=== PATIENT | male | born 1955 | race Caucasian/White ===

== ENCOUNTER 2016-10-03 15:08 | Inpatient (IN) | payer OTHER ==
[~2016-10-03] VITALS: Ht 182.9 cm; Wt 90.8 kg
[2016-10-03] MEDS ORDERED: AMIT75TA PO (18:19)
[2016-10-03] MEDS ORDERED: MORP-38 PO (18:19)
[2016-10-03] MEDS ORDERED: PROZ20CA11 PO (18:19)
[2016-10-03] MEDS ORDERED: ARTI99.0 OU (18:19)
[2016-10-03] MEDS ORDERED: CLON0.5T PO (18:19)
[2016-10-03] MEDS ORDERED: FISH1000 PO (18:19)
[2016-10-03] MEDS ORDERED: LACT10SO29 PO (18:19)
[2016-10-03] MEDS ORDERED: FEXO180T58 PO (18:19)
[2016-10-03] MEDS ORDERED: ASPI81TA13 PO (18:19)
[2016-10-03] MEDS ORDERED: POTA20TA PO (18:19)
[2016-10-03] MEDS ORDERED: METH75TA PO (18:19)
[2016-10-03] MEDS ORDERED: MECL25CH PO (18:19)
[2016-10-03] MEDS ORDERED: BISA10SU4 PR (18:19)
[2016-10-03] MEDS ORDERED: SIME80TA PO (18:19)
[2016-10-03] MEDS ORDERED: VITA100066 PO (18:19)
[2016-10-03] MEDS ORDERED: PROM25TA PO (18:19)
[2016-10-03] MEDS ORDERED: OMEP20CA3 PO (18:19)
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
--- NOTE | 2016-10-03 20:46 | EDDOCDS ---
Physician Documentation [facility] Name: Corby Pendleton Age: 61 yrs Sex: Male : 1955 Arrival Date: 10/03/2016 Time: 15:[address] MD: Disposition: 10/03/16 19:29 Hospitalization ordered by Leighann Uriarte for Inpatient Admission. Preliminary diagnosis is Homicidal and suicidal ideations. - Bed requested for Admit. - Status is Inpatient Admission. slm - Condition is Stable. - Problem is new. - Symptoms are unchanged. Historical: - Allergies: ARIPIPRAZOLE; BuSpar; Cefuroxime; Effexor; Compazine; Erythromycin; Haldol; Imitrex; MAGNESIUM SULFATE; MODAFINIL; Neurontin; Pamelor; Prazosin; Risperdal; SUMATRIPTAN; Tramadol HCl; Trazodone; - Home Meds: 1. Enulose 10 gram/15 mL oral soln 3 times per day 2. methocarbamol 750 mg Oral tab twice a day 3. omeprazole 20 mg Oral cpDR 2 caps nightly 4. Polly 180 mg Oral tab 1 tab once daily 5. Vitamin D Oral 2000 units daily 6. bisacodyl 10 mg Rectal Suppository Oral tab once daily 7. K-Dur 20 mEq Oral TbTQ 1 tab once daily 8. Prozac 20 mg Oral cap 1 cap once daily 9. promethazine 25 mg Oral tab 1 tab once daily as needed (Last dose: 10/03/2016 00:35) 10. amitriptyline 75 mg Oral tab nightly (Last dose: 10/03/2016 01:19) 11. meclizine 25 mg Oral chew 1 tab 3 times per day (Last dose: 10/03/2016 13:41) 12. aspirin 81 mg Oral tab once daily (Last dose: 10/03/2016 09:40) 13. MS Contin 15 mg Oral TbER 1 tab every 12 hours (Last dose: 10/03/2016 13:49) 14. simethicone 80 mg Oral tab 0.5 tab every 6 hours as needed 15. Fish Oil 1,000 mg Oral cap 2 caps daily 16. clonazepam 0.5 mg Oral tab at bedtime 17. Artificial Tears 1.4% Opht four times a day as needed - PMHx: Anxiety; back pain; COPD; Depression; GERD; Migraines; psych hx; - PSHx: spleen; bladder; - Social history: Smoking status: Patient uses tobacco products, current every day smoker. Patient/guardian denies using alcohol, street drugs, No barriers to communication noted, The patient speaks fluent [place], Speaks appropriately for age. - Family history: Not pertinent. - : The pt / caregiver states he / she is not on anticoagulants. Home medication list is obtained from medical history from iván. - Exposure Risk Screening:: None identified. Vital Signs: 10/03 15:41 BP 145 / 87; Pulse 102; Resp 16; Temp 95.5(T); Pulse Ox 97% on R/A; ead 20:39 BP 140 / 91; Pulse 101; Resp 18; Temp 96.4; Pulse Ox 96% on R/A; slm MDM: 15:29 morphine Extended Release Tablet 15 mg PO once ordered. ml 15:29 Aspirin Chewable Tablet 81 mg PO once ordered. ml 15:57 Financial registration complete. [email or web address] 16:22 [facility] Payment Agreement was scanned into [employer] and attached to record. [email or web address] 16:55 Fingerstick Blood Sugar Reviewed. ml 17:56 REGULAR DIET PLASTIC KANG+DIET ordered. EDMS 18:53 Admit to [facility]: ordered. EDMS 18:56 E Legal paperwork was scanned into [employer] and attached to record. ml4 Point of Care Testing: Blood Glucose: 15:40 Blood Glucose: 119 mg/dL; ead Ranges: Administered Medications: 16:03 Not Given (given prior to arrival to [facility]): morphine Extended Release Tablet 15 mg PO ead once 16:03 Not Given (given prior to arrival to [facility]): Aspirin Chewable Tablet 81 mg PO once ead Signatures: Dispatcher [employer] EDMS Krystle Nevarez MD MD ml Treadwell, Michelle, PSA PSA ml4 Radha Moran LPN LPN Corry Munoz,RN RN ead Cinthia Dallas, Reg Reg [email or web address] The chart was reviewed and I authenticate all verbal orders and agree with the evaluation and treatment provided.Corrections: (The following items were deleted from the chart) 15:52 15:47 Home Meds: amitriptyline 75 mg Oral tab nightly; danitza ead 15:52 15:47 Home Meds: MS Contin 15 mg Oral TbER 1 tab every 12 hours; gaild ead 15:52 15:47 Home Meds: promethazine 25 mg Oral tab 1 tab once daily as needed; gaild gaild 16:02 15:47 Home Meds: meclizine 25 mg Oral chew 1 tab 3 times per day; danitza bosch 16:02 15:47 Home Meds: aspirin 81 mg Oral tab once daily; danitza reynoldsd 16:02 15:51 Home Meds: MS Contin 15 mg Oral TbER 1 tab every 12 hours (Last Dose: 10/03/2016 ead 01:19); danitza 17:55 17:14 REGULAR DIET ROOM SERVICE ED+DIET ordered. EDMS EDMS 18:29 15:47 Home Meds: simethicone 80 mg Oral tab every 6 hours as needed; gaild ead 18:29 15:47 Home Meds: Fish Oil 1,000 mg Oral cap daily; danitza reynoldsd Attachments: 16:22 [facility] Payment Agreement [email or web address] [facility]
[2016-10-03 20:56] VITALS: BP 129/82
[2016-10-03] MEDS ORDERED: MOM 30ML SUSPENSION UDC PO PRN (22:30)
[2016-10-03] MEDS ORDERED: OLANZapine ORAL DISINTEGRATING TAB 5MG PO PRN (22:45)
[2016-10-03] MEDS: AMITRIPTYLINE 25 MG TAB PO SCH (23:31)
[2016-10-03] MEDS: OMEPRAZOLE 20 MG CAP PO SCH (23:31)
[2016-10-04] MEDS: BISACODYL 10 MG SUPP PR SCH (08:37)
[2016-10-04] MEDS: FLUoxetine 20 MG CAP PO SCH (08:42)
[2016-10-04] MEDS: NICOTINE 21MG/24HR 1 EA TRANSDERMAL TD SCH (08:42)
[2016-10-04] MEDS: ASPIRIN 81 MG ENTERIC TAB PO SCH (08:42)
[2016-10-04] MEDS: OMEGA-3 1050MG CAPSULE PO SCH (08:42)
[2016-10-04] MEDS: MORPHINE 15 MG SA TAB PO SCH ×2 (08:43→23:54)
[2016-10-04] MEDS: VITAMIN D 1,000 INTERNATIONAL UNITS TABLET PO SCH (08:43)
[2016-10-04] MEDS: POTASSIUM CHLORIDE 10 MEQ SR TABLET PO SCH (08:43)
[2016-10-04] MEDS: FEXOFENADINE 60 MG TAB PO SCH (08:44)
[2016-10-04] MEDS ORDERED: LACTULOSE 20 GM/30 ML SYRUP UD PO SCH (09:00)
[2016-10-04] MEDS ORDERED: PROMETHAZINE 25 MG TAB PO SCH (09:00)
[2016-10-04] MEDS ORDERED: MECLIZINE 25 MG TABLET PO SCH (09:00)
[2016-10-04] MEDS ORDERED: LACTULOSE 20 GM/30 ML SYRUP UD PO PRN (09:00)
[2016-10-04] MEDS ORDERED: METHOCARBAMOL 750 MG TAB PO SCH (09:00)
[2016-10-04] MEDS: MECLIZINE 25 MG TABLET PO PRN ×3 (12:45→21:43)
[2016-10-04] MEDS ORDERED: clonazePAM 0.5 MG TAB PO ONE (13:00)
[2016-10-04] MEDS ORDERED: LORazepam 1 MG TAB PO STA (16:14)
[2016-10-04] MEDS: METHOCARBAMOL 750 MG TAB PO PRN (16:24)
[2016-10-04] MEDS: ACETAMINOPHEN TAB 650MG DOSE (2X325MG) PO PRN (16:24)
[2016-10-04] MEDS: PROMETHAZINE 25 MG TAB PO PRN (17:38)
[2016-10-04] MEDS: chlorproMAZINE 25 MG TAB (Q0161) PO PRN (17:53)
[2016-10-04 18:00] VITALS: BP 135/93
[2016-10-04 21:10] VITALS: BP 122/84
[2016-10-04] MEDS: FIORICET TAB PO PRN (21:43)
[2016-10-04] MEDS ORDERED: PROMETHAZINE INJ 25 MG/ML VIAL (J2550) IM ONE (23:15)
[2016-10-04] MEDS ORDERED: LORazepam 2 MG/ML VIAL (J2060) IM ONE (23:30)
[2016-10-04] MEDS: OMEPRAZOLE 20 MG CAP PO SCH (23:54)
[2016-10-04] MEDS: clonazePAM 0.5 MG TAB PO SCH (23:54)
[2016-10-04] MEDS: AMITRIPTYLINE 25 MG TAB PO SCH (23:54)
--- NOTE | 2016-10-05 00:26 | IPNPDOC ---
Text Note Date of Service The patient was seen on 10/05/16. NOTE Rapid assessment team initiated at approximately 9:10 PM on 10/04/2016. The patient apparently was going to the bathroom, and slipped off the side of the toilet and hit his right head against the side rail, and subsequently landed on his left wrist and left ankle according to the patient. The patient states that he had a momentary bout of lightheadedness, dizziness following the trauma, but states that this only lasted 5 seconds. According to the staff the patient did not have any tongue biting, jerking activity, or any urinary/bowel incontinence. Upon my arrival at the bedside, the patient was noted to be seated on the floor and very agitated. At first, he declined to be cooperative with my evaluation. However, after some persuasion the patient did let me eventually examine him. V/S: B/P 142/84, RR: 18, Pulse: 72, Pulse Ox: 97% on RA Physical Exam: General: Awake, Alert, and Belligerent/Non-Cooperative at times Cardiac: Normal Respiratory: CTA Bilaterally Extremities/Neurological: There appears to be no focal neurological findings on exam, left wrist with good range of motion on flexion and extension with adequate strength and no obvious deformity noted. The patient was also able to bear weight on his left foot, and did not have any significant pain on plantar flexion/extension, with sensation also intact. CT Scan of the Head, X-Rays of the Left Wrist, and Ankle ordered to r/o out any Intracranial Bleeding following trauma to the head, or any acute fractures in the left wrist and ankle respectively. Patient's bedside Nurse Lynnette updated, and advised to call with any acute findings or other concerns. VS,Harjeetbone, I+O VS, Fishbone, I+O Vital Signs Date Time Temp Pulse Resp B/P Pulse Ox O2 Delivery O2 Flow Rate FiO2 10/04/16 23:54 68 18 10/04/16 18:00 98.3 135/93 AMY MORENO MD Oct 05, 2016 00:26
[2016-10-05 00:29] VITALS: BP 114/83
--- NOTE | 2016-10-05 01:50 | REPUSA ---
CLINICAL HISTORY: Head trauma. TECHNIQUE: Multiple axial brain CT scan sections were obtained from base to vertex without contrast a dministration. COMMENTS: There is no evidence of skull fracture. The study shows normal configuration of sella turcica. There are no intra or extra-axial collections. There is no mass effect or midline shift. There is no evidence of hematoma formation. No hydrocephal us is present. No abnormal calcifications are noted. No significant abnormalities are seen either in the posterior fossa or supratentorial compartment. Moderate chronic mucosal inflammatory changes of the ethmoid air cells. The sinuses and mastoid air cells are patent. IMPRESSION: No evidence of acute intracranial pathology. No intracranial hemorrhage or skull fracture. Thank you for your kind referral of this patient.
--- NOTE | 2016-10-05 06:01 | HPE ---
DATE OF ADMISSION: 10/03/2016 CHIEF COMPLAINT: Feels irritated. SUBJECTIVE: He is 61-year-old. He has a history of schizoaffective. He is a . He also says he has a history of post traumatic stress disorder. He was transferred from [facility], as apparent they had no beds. He had been there recently, for a couple of days, admitted September 30, discharged October 02, and he was admitted as he was suicidal, later indicates that he was not, he was noted to be loud and aggressive, and according to their admission summary, he was diagnosed with schizoaffective disorder, and then discharged with [facility]up at [facility] [place], but I understand he also goes to the [facility] in [place], where he sees a Dr. Grant. He says he sees him once a month. It should be noted the patient is not a reliable historian, given his condition. He was discharged on: - amitriptyline 75 mg at night which he says he takes for pain and sleep - aspirin 81 mg, vitamin D 2000 units daily - fexofenadine 180 mg daily - Prozac 20 mg daily - Methergine 25 mg three times daily as needed - methocarbamol 750 mg as needed - he uses morphine regular at 15 mg twice daily - omeprazole 40 mg daily - clonazepam at 0.5 mg at night, though it is noted that he was not discharged on it He was taken back to [facility], as [facility] indicating that he wanted to kill people at [facility], he felt that they had not given him the right medications. He, at one point, also said he wanted to kill one of the doctors there, then said he wanted to kill one of the doctors in the area there, says the police were aware of this. The police were informed by the [facility], and he was picked up and taken to the hospital at [place], they did not admit him as they did not have any beds and he was sent here. He has wanted to go to the [facility] for admission, and I understand, from the staff in the emergency room, the [facility] was contacted yesterday, and that they said that they would not look at his papers until tomorrow, tomorrow being Wednesday, when they would consider him for transfer. He was therefore admitted here. He has been irritable, verbally aggressive, has rapid speech, is tangential in thought. ALLERGIES: He does say he is allergic to several medications and most anti-psychotics mentioned, he suggested allergies to. This includes HALDOL, RISPERIDONE. Again, it is not clear whether they are true allergies, he suggests that RISPERIDONE makes him "more psychotic." He says that Dr. Grant at the [facility] in [place] has known him well, and he suggests that we contact him, and that he will only give us permission for him specifically, for us to get a list of his medications. PAST PSYCHIATRIC HISTORY: As indicated above, has been in psychiatric care for a while, has been admitted to [facility] just recently. PAST MEDICAL HISTORY: 1. Significant for back pain. 2. Chronic pulmonary obstructive disease (COPD). 3. Gastrointestinal reflux disease (GERD). 4. Migraines. MEDICATIONS: Please see the list. These include the promethazine, amitriptyline, meclizine, Prozac, clonazepam. He uses the clonazepam at 0.5 mg at night. He says at one time he was on 8 mg a day, and that was whittled down to 2 mg in the past, now 0.5 mg. Again, I am not quite sure of the patient's reliability. SOCIAL HISTORY: Apparently stays on his own. He is , indicated he has been to various parts of the world, suggested that I do not ask him about details, and I did not. MENTAL STATUS EXAM: He is tall, mildly unkempt, wears dark glasses, uses a walker, cooperative to some extent, but easily irritated, he has overly productive speech, is tangential in thought, speech is not clear, pressured as such. He has a congruent affect, denies active thoughts of hurting himself, currently denies thought of hurting anyone else. He does not appear to be internally preoccupied, but most likely is deluded, he is alert, he is oriented to time, place and person, though thought it was the 05 of October rather than October 04. Sensorium is clear, his judgment is clouded, as is insight. VITAL SIGNS: Blood pressure 129/82, pulse 102, temperature 97.6. ASSESSMENT: 1. Schizoaffective disorder by history. 2. Post traumatic stress disorder by history. 3. Possibly limited social support. 4. Various medical difficulties. He is currently manic, with psychosis, schizoaffective disorder may possibly be the bipolar type. The other differential is bipolar disorder. He says he has post traumatic stress disorder, we did not go into details, and I am not quite sure of the patient's reliability. PLAN: He is admitted to the inpatient psychiatry unit, placed on relevant precautions, and he will be involved in individual, group and milieu therapy. We will attempt at obtaining collateral information, past records, records have been obtained from [facility], and we will attempt at obtaining them from the [facility] in [place] as well as the patient needs mood stabilizers. I am not quite sure of "true allergies" for the various medications that he suggested as been allergic to, including atypical anti-psychotics. He says he has used Depakote in the past, but that "it did not work." For now we will continue with the current medication regimen, but will add clonazepam at 0.5 mg times one for the daytime, to help diminish his agitation and anxiety. Given the limited information we have, will look at avoiding the atypical anti-psychotics to help with mood stabilization. He will receive a medical consultation if indicated. He wishes for a transfer to the [facility], we will pursue that, through discharge planning and the [facility], tomorrow Wednesday, when he will also be seeing the psychiatrist assigned to him. The assessment took 35 minutes. The patient decided to cut it short, indicating he was done. I anticipate that the patient will require a 5-7 day stay, whether it is here or at the SD.
[2016-10-05] MEDS: MAALOX 30 ML SUSP *UDC PO PRN (06:22)
--- NOTE | 2016-10-05 08:06 | REP ---
Clinical: Trauma. Fall. Technique: AP, lateral, bilateral oblique views of the left ankle. Findings: Moderate soft tissue swelling appreciated. No acute fracture or dislocation. Joint spaces and ankle mortise appear intact and normal for age. Impression: Soft-tissue swelling. No acute fracture or dislocation. Signed by Corby Lim MD 10/05/2016 07:57 A
--- NOTE | 2016-10-05 08:09 | REP ---
Clinical: Trauma. Fall. Technique: AP, lateral, bilateral oblique views. Findings: The carpal bones, surrounding osseous structures, soft tissues, and joint spaces are normal. There is no evidence for acute fracture or dislocation. No subcutaneous emphysema or radiodense foreign body. Impression: No acute fracture or dislocation appreciated. Signed by Corby Lim MD 10/05/2016 08:00 A
[2016-10-05] MEDS: FEXOFENADINE 60 MG TAB PO SCH (08:33)
[2016-10-05] MEDS: POTASSIUM CHLORIDE 10 MEQ SR TABLET PO SCH (08:33)
[2016-10-05] MEDS: VITAMIN D 1,000 INTERNATIONAL UNITS TABLET PO SCH (08:33)
[2016-10-05] MEDS: ASPIRIN 81 MG ENTERIC TAB PO SCH ×2 (08:33→09:00)
[2016-10-05] MEDS: FLUoxetine 20 MG CAP PO SCH (08:33)
[2016-10-05] MEDS: OMEGA-3 1050MG CAPSULE PO SCH (08:33)
[2016-10-05] MEDS: NICOTINE 21MG/24HR 1 EA TRANSDERMAL TD SCH (08:34)
[2016-10-05] MEDS: MORPHINE 15 MG SA TAB PO SCH (08:34)
[2016-10-05] MEDS: PROMETHAZINE 25 MG TAB PO PRN (08:36)
[2016-10-05] MEDS: BISACODYL 10 MG SUPP PR SCH (08:37)
[2016-10-05] MEDS: METHOCARBAMOL 750 MG TAB PO PRN ×2 (08:49→19:27)
--- NOTE | 2016-10-05 08:50 | HPE ---
DATE OF ADMISSION: 10/03/2016 PRIMARY CARE PROVIDER: [facility]. HISTORY OF PRESENT ILLNESS: Please refer to psychiatric history and evaluation for further details on this admission. This examination and history is intended for medical issues, which may need treatment, followup or consultation on this 61-year-old male, who was transferred from [facility] after having homicidal ideations. He was discharged on 10/02/2016 from [facility]. SOCIAL HISTORY: He lives alone. He does not drink alcohol. Smokes less than one pack of cigarettes per day. Recreational drug use is none. PAST MEDICAL HISTORY: Chronic back pain, chronic obstructive pulmonary disease (COPD), migraines, gastroesophageal reflux disease (GERD). PAST SURGICAL HISTORY: Bladder surgery and some type of spleen surgery, he states. ALLERGIES: ERYTHROMYCIN, HALOPERIDOL, KETOROLAC, OLANZAPINE, PROCHLORPERAZINE, SUMATRIPTAN. HOME MEDICATIONS: [facility], as listed currently: - amitriptyline 75 mg by mouth at night - artificial tears one drop both eyes four times a day as needed for dry eyes - aspirin 81 mg by mouth daily - bisacodyl 10 mg suppository as needed twice a day for constipation - vitamin D 2000 units by mouth daily - clonazepam 0.5 mg by mouth at night - fexofenadine 180 mg by mouth daily - fish oil 2000 mg by mouth daily - Prozac 20 mg by mouth daily - Lactulose 15 mg by mouth every third day as needed for constipation - meclizine 25 mg by mouth three times a day as needed for vertigo - methocarbamol 750 mg by mouth every 12 hours as needed for back pain - morphine sulfate ER 15 mg by mouth twice a day for back pain - omeprazole 40 mg by mouth at night - potassium chloride 20 mEq by mouth daily - promethazine 25 mg by mouth daily as needed for nausea - simethicone 40 mg by mouth four times a day as needed EKG on file shows sinus rhythm of 89. REVIEW OF SYSTEMS: No complaint of headache currently and does have dark sunglasses on. No blurry or double vision. No fever. No chills. No tinnitus. No hoarseness. No difficulty swallowing. No lightheadedness. No vertigo. CARDIOVASCULAR: No complaints of chest pain, shortness of breath, palpitations, or edema. RESPIRATORY: No chronic cough. No sputum production. No hemoptysis. No orthopnea. No wheeze. He does have a history of COPD. GASTROINTESTINAL: History of gastroesophageal reflux disease (GERD). No complaints of nausea, vomiting, diarrhea. No hematochezia. No melena. No complaints of abdominal pain. GENITOURINARY: No hematuria, dysuria, frequency. MUSCULOSKELETAL: No joint redness or swelling. ENDOCRINE: No polyuria, polydipsia, polyphagia. HEMATOLOGIC: No history of anemia. NEUROLOGIC: No history of seizures. No paresthesias or paralysis. PSYCHOLOGICAL: See psychiatric history and physical. PHYSICAL EXAMINATION: GENERAL: 61-year-old cooperative male who looks much older than his stated years. Height 72 inches, weight 90.8 kg, Body Mass Index (BMI) 27.1. VITAL SIGNS: Blood pressure 129/72, pulse 100, respirations 20, temperature 97.6. The patient is alert and oriented to person and place. HEENT: Pupils are equal and reactive to light. Extraocular muscles intact. Sclerae clear. Conjunctivae normal. No facial asymmetry. Pharynx, gums and tongue pink and moist. Tongue is midline. NECK: Supple without lymphadenopathy, thyromegaly or goiter. CHEST: Clear to auscultation without wheeze or retraction. HEART: Regular. ABDOMEN: Benign. Bowel sounds positive. GENITOURINARY/RECTAL: Not done. EXTREMITIES: Equal strength, full range of motion. No clubbing, cyanosis, and edema. Gait is steady. SKIN: Warm and dry. Peripheral pulses equal and palpable bilaterally. IMPRESSION/PLAN: 1. Psychiatric plan per psychiatry. 2. Chronic back pain, clinically stable. 3. Chronic obstructive pulmonary disease (COPD), stable. 4. History of migraines, none currently. 5. History of gastroesophageal reflux disease (GERD), clinically stable. 6. No acute medical issues. The patient requests nicotine patch and that has been ordered for smoking cessation. EKG on file shows sinus rhythm.
[2016-10-05] MEDS: FIORICET TAB PO PRN ×2 (08:51→17:12)
[2016-10-05] MEDS: MECLIZINE 25 MG TABLET PO PRN (08:51)
[2016-10-05] MEDS ORDERED: DIVALPROEX 500 MG TAB PO SCH (09:00)
[2016-10-05] MEDS ORDERED: MECLIZINE 25 MG TABLET PO PRN (09:00)
--- NOTE | 2016-10-05 15:10 | IPN ---
DATE: 10/05/2016 SUBJECTIVE: "[facility] have to [facility] to the [facility]." OBJECTIVE: The patient is displaying manic behavior with pressured speech and needs frequent redirection. The patient has very low insight into his psychiatric illness and is trying to tell me what I need to do to make him better. The patient is making statements such as, "they are messing up with my medications." Since he is requesting to go to the [facility], our community development planner is working in finding a bed at the [facility]. At this point, there is no bed availability but it seems that there will be one later on during the day. MENTAL STATUS EXAMINATION: The patient is dressed in [facility]. The patient has poor eye contact. Speech is pressured. Mood is elated. Affect is congruent with mood. There is no evidence of hallucinations. The patient appears to be grandiose and delusional. The patient denies suicidal or homicidal ideation. Insight and judgment is poor. ASSESSMENT: 1. Schizoaffective disorder. 2. Posttraumatic stress disorder (PTSD). 3. Manic behavior. PLAN: 1. We will start a low dosage of Seroquel 200 mg at bedtime. 2. Seroquel 50 mg by mouth twice a day at 9:00 a.m. and 1600. 3. Start Depakote 500 mg by mouth twice a day. 4. Continue with Klonopin 0.5 mg by mouth at bedtime. 5. Continue with Thorazine 50 mg by mouth every four hours as needed for agitation. 6. We will discontinue fluoxetine. 7. We will discontinue Elavil 75 mg by mouth at bedtime.
[2016-10-05 15:17] LABS: MEAN CORPUSCULAR HEMOGLOBIN 28.8 pg (27.0-33.0); MEAN CORPUSCULAR HGB CONC 32.1 g/dl (32.0-36.5); MEAN CORPUSCULAR VOLUME 89.7 fl (80.0-96.0); WHITE BLOOD COUNT 6.6 K/mm3 (4.0-10.0)
[2016-10-05 15:51] LABS: ALBUMIN 3.2 GM/DL (3.2-5.2); ALKALINE PHOSPHATASE 68 U/L (45-117); ALT/SGPT 28 U/L (12-78); ANION GAP 8 MEQ/L (8-16); AST/SGOT 18 U/L (15-37); BILIRUBIN,TOTAL 0.2 MG/DL (0.2-1.0); BLOOD UREA NITROGEN 12 MG/DL (7-18); CALCIUM LEVEL 8.2 MG/DL (8.8-10.2); CARBON DIOXIDE LEVEL 30 MEQ/L (21-32); CHLORIDE LEVEL 103 MEQ/L (98-107); CREATININE FOR GFR 0.78 MG/DL (0.70-1.30); GLOMERULAR FILTRATION RATE > 60.0 (>49); GLUCOSE, FASTING 95 MG/DL (80-110); POTASSIUM SERUM 4.2 MEQ/L (3.5-5.1); SODIUM LEVEL 141 MEQ/L (136-145); T UPTAKE 38 % (33-40); THYROXINE (T4) 4.7 UG/DL (4.5-12.0); TOTAL PROTEIN 6.4 GM/DL (6.4-8.2)
--- NOTE | 2016-10-05 16:46 | ECGEPIP ---
Stationary ECG Study [facility] Test Date: 2016-10-04 Pat Name: ZOË CADET Department: Room: [place] [address] Gender: M Operations Intern: BURGOS : 1955 Requested By: Leighann Uriarte Order Number: [id number] Reading MD: Jori Johnson Measurements Intervals [place] Rate: 119 P: 60 WV: 147 QRS: -61 QRSD: 110 T: 73 QT: 331 QTc: 466 Interpretive Statements Sinus tachycardia. Extreme leftward axis - left anterior hemiblock Low voltage with prominent right precordial R waves and persistent S waves V5 and V6; body habitus versus pulmonary disease. Rule out RVH or prior PWMI. Nonspecific ST/T-wave abnormalities. Increased rate from 03/15/15 Electronically Signed On 10-05-2016 16:46:05 EST by Jori Johnson
[2016-10-05] MEDS: QUEtiapine FUMARATE 50 MG TAB PO SCH (16:50)
[2016-10-05] MEDS ORDERED: PROMETHAZINE 25 MG TAB PO PRN (17:19)
[2016-10-05] MEDS ORDERED: PROMETHAZINE 25 MG SUPP PR PRN (17:30)
[2016-10-05 18:00] VITALS: BP 133/89
[2016-10-05 19:03] VITALS: BP 147/87
[2016-10-05] MEDS: ACETAMINOPHEN TAB 650MG DOSE (2X325MG) PO PRN (19:28)
[2016-10-05] MEDS: DIVALPROEX 500 MG TAB PO SCH (20:10)
[2016-10-05] MEDS ORDERED: ZIPRASIDONE 20 MG/ML VIAL *GEODON* (J3486) IM ONE (20:30)
[2016-10-05] MEDS: QUEtiapine FUMARATE 200 MG TAB PO SCH (21:00)
--- NOTE | 2016-10-05 21:47 | EDDOCDS ---
Physician Documentation [facility] Name: Corby Pendleton Age: 61 yrs Sex: Male : 1955 Arrival Date: 10/03/2016 Time: 15:[address] MD: Disposition: 10/03/16 19:29 Hospitalization ordered by Leighann Uriarte for Inpatient Admission. Preliminary diagnosis is Homicidal and suicidal ideations. - Bed requested for Admit. - Status is Inpatient Admission. slm - Condition is Stable. - Problem is new. - Symptoms are unchanged. Historical: - Allergies: ARIPIPRAZOLE; BuSpar; Cefuroxime; Effexor; Compazine; Erythromycin; Haldol; Imitrex; MAGNESIUM SULFATE; MODAFINIL; Neurontin; Pamelor; Prazosin; Risperdal; SUMATRIPTAN; Tramadol HCl; Trazodone; - Home Meds: 1. Enulose 10 gram/15 mL oral soln 3 times per day 2. methocarbamol 750 mg Oral tab twice a day 3. omeprazole 20 mg Oral cpDR 2 caps nightly 4. Polly 180 mg Oral tab 1 tab once daily 5. Vitamin D Oral 2000 units daily 6. bisacodyl 10 mg Rectal Suppository Oral tab once daily 7. K-Dur 20 mEq Oral TbTQ 1 tab once daily 8. Prozac 20 mg Oral cap 1 cap once daily 9. promethazine 25 mg Oral tab 1 tab once daily as needed (Last dose: 10/03/2016 00:35) 10. amitriptyline 75 mg Oral tab nightly (Last dose: 10/03/2016 01:19) 11. meclizine 25 mg Oral chew 1 tab 3 times per day (Last dose: 10/03/2016 13:41) 12. aspirin 81 mg Oral tab once daily (Last dose: 10/03/2016 09:40) 13. MS Contin 15 mg Oral TbER 1 tab every 12 hours (Last dose: 10/03/2016 13:49) 14. simethicone 80 mg Oral tab 0.5 tab every 6 hours as needed 15. Fish Oil 1,000 mg Oral cap 2 caps daily 16. clonazepam 0.5 mg Oral tab at bedtime 17. Artificial Tears 1.4% Opht four times a day as needed - PMHx: Anxiety; back pain; COPD; Depression; GERD; Migraines; psych hx; - PSHx: spleen; bladder; - Social history: Smoking status: Patient uses tobacco products, current every day smoker. Patient/guardian denies using alcohol, street drugs, No barriers to communication noted, The patient speaks fluent Zimbabwean, Speaks appropriately for age. - Family history: Not pertinent. - : The pt / caregiver states he / she is not on anticoagulants. Home medication list is obtained from medical history from [facility]. - Exposure Risk Screening:: None identified. Vital Signs: 10/03 15:41 BP 145 / 87; Pulse 102; Resp 16; Temp 95.5(T); Pulse Ox 97% on R/A; ead 20:39 BP 140 / 91; Pulse 101; Resp 18; Temp 96.4; Pulse Ox 96% on R/A; slm MDM: 15:29 morphine Extended Release Tablet 15 mg PO once ordered. ml 15:29 Aspirin Chewable Tablet 81 mg PO once ordered. ml 15:57 Financial registration complete. [email or web address] 16:22 [facility] Payment Agreement was scanned into [employer] and attached to record. [email or web address] 16:55 Fingerstick Blood Sugar Reviewed. ml 17:56 REGULAR DIET PLASTIC KANG+DIET ordered. EDMS 18:53 Admit to [facility]: ordered. EDMS 18:56 E Legal paperwork was scanned into [employer] and attached to record. ml4 10/04 20:22 T-Sheet-- Draft Copy was scanned into [employer] and attached to record. klr Point of Care Testing: Blood Glucose: 10/03 15:40 Blood Glucose: 119 mg/dL; ead Ranges: Administered Medications: 16:03 Not Given (given prior to arrival to [facility]): morphine Extended Release Tablet 15 mg PO ead once 16:03 Not Given (given prior to arrival to [facility]): Aspirin Chewable Tablet 81 mg PO once ead Signatures: Dispatcher [employer] EDMS Krystle Nevarez MD MD ml Treadwell, Michelle, PSA PSA ml4 Radha Moran LPN PROGRAM SUPERVISOR Corry Munoz,RICHARD RN ead Cinthia Dallas, Reg Reg ks16 Dora Lara radha The chart was reviewed and I authenticate all verbal orders and agree with the evaluation and treatment provided.Corrections: (The following items were deleted from the chart) 15:52 15:47 Home Meds: amitriptyline 75 mg Oral tab nightly; ead ead 15:52 15:47 Home Meds: MS Contin 15 mg Oral TbER 1 tab every 12 hours; ead ead 15:52 15:47 Home Meds: promethazine 25 mg Oral tab 1 tab once daily as needed; ead ead 16:02 15:47 Home Meds: meclizine 25 mg Oral chew 1 tab 3 times per day; ead ead 16:02 15:47 Home Meds: aspirin 81 mg Oral tab once daily; ead ead 16:02 15:51 Home Meds: MS Contin 15 mg Oral TbER 1 tab every 12 hours (Last Dose: 10/03/2016 ead 01:19); ead 17:55 17:14 REGULAR DIET ROOM SERVICE ED+DIET ordered. EDMS EDMS 18:29 15:47 Home Meds: simethicone 80 mg Oral tab every 6 hours as needed; ead ead 18:29 15:47 Home Meds: Fish Oil 1,000 mg Oral cap daily; ead ead Attachments: 16:22 [facility] Payment Agreement [email or web address] 10/04 20:22 T-Sheet-- Draft Copy klr Chart Complete MTDD
--- NOTE | 2016-10-05 21:47 | EDDOCDS ---
Physician Documentation [facility] Name: Corby Pendleton Age: 61 yrs Sex: Male : 1955 Arrival Date: 10/03/2016 Time: 15:[address] MD: Disposition: 10/03/16 19:29 Hospitalization ordered by Leighann Uriarte for Inpatient Admission. Preliminary diagnosis is Homicidal and suicidal ideations. - Bed requested for Admit. - Status is Inpatient Admission. slm - Condition is Stable. - Problem is new. - Symptoms are unchanged. Historical: - Allergies: ARIPIPRAZOLE; BuSpar; Cefuroxime; Effexor; Compazine; Erythromycin; Haldol; Imitrex; MAGNESIUM SULFATE; MODAFINIL; Neurontin; Pamelor; Prazosin; Risperdal; SUMATRIPTAN; Tramadol HCl; Trazodone; - Home Meds: 1. Enulose 10 gram/15 mL oral soln 3 times per day 2. methocarbamol 750 mg Oral tab twice a day 3. omeprazole 20 mg Oral cpDR 2 caps nightly 4. Polly 180 mg Oral tab 1 tab once daily 5. Vitamin D Oral 2000 units daily 6. bisacodyl 10 mg Rectal Suppository Oral tab once daily 7. K-Dur 20 mEq Oral TbTQ 1 tab once daily 8. Prozac 20 mg Oral cap 1 cap once daily 9. promethazine 25 mg Oral tab 1 tab once daily as needed (Last dose: 10/03/2016 00:35) 10. amitriptyline 75 mg Oral tab nightly (Last dose: 10/03/2016 01:19) 11. meclizine 25 mg Oral chew 1 tab 3 times per day (Last dose: 10/03/2016 13:41) 12. aspirin 81 mg Oral tab once daily (Last dose: 10/03/2016 09:40) 13. MS Contin 15 mg Oral TbER 1 tab every 12 hours (Last dose: 10/03/2016 13:49) 14. simethicone 80 mg Oral tab 0.5 tab every 6 hours as needed 15. Fish Oil 1,000 mg Oral cap 2 caps daily 16. clonazepam 0.5 mg Oral tab at bedtime 17. Artificial Tears 1.4% Opht four times a day as needed - PMHx: Anxiety; back pain; COPD; Depression; GERD; Migraines; psych hx; - PSHx: spleen; bladder; - Social history: Smoking status: Patient uses tobacco products, current every day smoker. Patient/guardian denies using alcohol, street drugs, No barriers to communication noted, The patient speaks fluent Macanese, Speaks appropriately for age. - Family history: Not pertinent. - : The pt / caregiver states he / she is not on anticoagulants. Home medication list is obtained from medical history from [facility]. - Exposure Risk Screening:: None identified. Vital Signs: 10/03 15:41 BP 145 / 87; Pulse 102; Resp 16; Temp 95.5(T); Pulse Ox 97% on R/A; ead 20:39 BP 140 / 91; Pulse 101; Resp 18; Temp 96.4; Pulse Ox 96% on R/A; slm MDM: 15:29 morphine Extended Release Tablet 15 mg PO once ordered. ml 15:29 Aspirin Chewable Tablet 81 mg PO once ordered. ml 15:57 Financial registration complete. [email or web address] 16:22 [facility] Payment Agreement was scanned into [employer] and attached to record. [email or web address] 16:55 Fingerstick Blood Sugar Reviewed. ml 17:56 REGULAR DIET PLASTIC KANG+DIET ordered. EDMS 18:53 Admit to [facility]: ordered. EDMS 18:56 E Legal paperwork was scanned into [employer] and attached to record. ml4 10/04 20:22 T-Sheet-- Draft Copy was scanned into [employer] and attached to record. klr Point of Care Testing: Blood Glucose: 10/03 15:40 Blood Glucose: 119 mg/dL; ead Ranges: Administered Medications: 16:03 Not Given (given prior to arrival to [facility]): morphine Extended Release Tablet 15 mg PO ead once 16:03 Not Given (given prior to arrival to [facility]): Aspirin Chewable Tablet 81 mg PO once ead Signatures: Dispatcher [employer] EDMS Krystle Nevarez MD MD ml Treadwell, Michelle, PSA PSA ml4 Radha Moran LPN SMART GRID ENGINEER Corry Munoz,RICHARD RN ead Cinthia [place], Reg Reg ks16 Dora Lara radha The chart was reviewed and I authenticate all verbal orders and agree with the evaluation and treatment provided.Corrections: (The following items were deleted from the chart) 15:52 15:47 Home Meds: amitriptyline 75 mg Oral tab nightly; ead ead 15:52 15:47 Home Meds: MS Contin 15 mg Oral TbER 1 tab every 12 hours; ead ead 15:52 15:47 Home Meds: promethazine 25 mg Oral tab 1 tab once daily as needed; ead ead 16:02 15:47 Home Meds: meclizine 25 mg Oral chew 1 tab 3 times per day; ead ead 16:02 15:47 Home Meds: aspirin 81 mg Oral tab once daily; ead ead 16:02 15:51 Home Meds: MS Contin 15 mg Oral TbER 1 tab every 12 hours (Last Dose: 10/03/2016 ead 01:19); ead 17:55 17:14 REGULAR DIET ROOM SERVICE ED+DIET ordered. EDMS EDMS 18:29 15:47 Home Meds: simethicone 80 mg Oral tab every 6 hours as needed; ead ead 18:29 15:47 Home Meds: Fish Oil 1,000 mg Oral cap daily; ead ead Attachments: 16:22 [facility] Payment Agreement [email or web address] 10/04 20:22 T-Sheet-- Draft Copy klr Chart Complete MTDD
--- NOTE | 2016-10-05 21:47 | EDDOCDS ---
Nurse's Notes [facility] Name: Corby Pendleton Age: 61 yrs Sex: Male : 1955 Arrival Date: 10/03/2016 Time: 15:08 Bed [facility] Private MD: Diagnosis: Homicidal and suicidal ideations Presentation: 10/03 15:15 Presenting complaint: EMS states: Pt transferred from [facility] due to lack ead of bed availability, with diagnosis of schizoaffective disorder. Here for admission to [facility]. Mental Health Triage Level: Level 2: The patient displays active suicidal ideations. Adult Sepsis Screening: The patient does not have new or worsening altered mentation. Patient's respiratory rate is less than 22. Systolic blood pressure is greater than 100. Patient has a qSOFA score of 0- Negative Sepsis Screen. Suicide/Homicide risk assessment- The patient admits to and/or has been reported to be having suicidal ideations. The patient admits to and/or has been reported to be having homicidal ideations. 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 Transition of care: patient was received from [facility]. 15:15 Acuity: RAMONITA Level 3 ead 15:15 Method Of Arrival: Ambulance ead Triage Assessment: 15:26 General: Appears in no apparent distress, Behavior is anxious. Pain: Denies pain. HIV ead screening NA for this visit Offered previously. Neurological: Level of Consciousness is awake, alert, obeys commands, Oriented to person, place, time. Respiratory: Airway is patent Respiratory effort is even, unlabored. Derm: Skin is pink, warm & dry. Historical: - Allergies: ARIPIPRAZOLE; BuSpar; Cefuroxime; Effexor; Compazine; Erythromycin; Haldol; Imitrex; MAGNESIUM SULFATE; MODAFINIL; Neurontin; Pamelor; Prazosin; Risperdal; SUMATRIPTAN; Tramadol HCl; Trazodone; - Home Meds: 1. Enulose 10 gram/15 mL oral soln 3 times per day 2. methocarbamol 750 mg Oral tab twice a day 3. omeprazole 20 mg Oral cpDR 2 caps nightly 4. Polly 180 mg Oral tab 1 tab once daily 5. Vitamin D Oral 2000 units daily 6. bisacodyl 10 mg Rectal Suppository Oral tab once daily 7. K-Dur 20 mEq Oral TbTQ 1 tab once daily 8. Prozac 20 mg Oral cap 1 cap once daily 9. promethazine 25 mg Oral tab 1 tab once daily as needed (Last dose: 10/03/2016 00:35) 10. amitriptyline 75 mg Oral tab nightly (Last dose: 10/03/2016 01:19) 11. meclizine 25 mg Oral chew 1 tab 3 times per day (Last dose: 10/03/2016 13:41) 12. aspirin 81 mg Oral tab once daily (Last dose: 10/03/2016 09:40) 13. MS Contin 15 mg Oral TbER 1 tab every 12 hours (Last dose: 10/03/2016 13:49) 14. simethicone 80 mg Oral tab 0.5 tab every 6 hours as needed 15. Fish Oil 1,000 mg Oral cap 2 caps daily 16. clonazepam 0.5 mg Oral tab at bedtime 17. Artificial Tears 1.4% Opht four times a day as needed - PMHx: Anxiety; back pain; COPD; Depression; GERD; Migraines; psych hx; - PSHx: spleen; bladder; - Social history: Smoking status: Patient uses tobacco products, current every day smoker. Patient/guardian denies using alcohol, street drugs, No barriers to communication noted, The patient speaks fluent Divehi, Speaks appropriately for age. - Family history: Not pertinent. - : The pt / caregiver states he / she is not on anticoagulants. Home medication list is obtained from medical history from dai. - Exposure Risk Screening:: None identified. Screenin:48 Screening information is obtained from the patient. Fall risk: No risks identified. ead Assistance ADL's: requires no assistance with activities of daily living. Abuse/DV Screen: The patient / caregiver reports he/she is: not in a situation that causes fear, pain or injury. Nutritional screening: No deficits noted. home support is adequate. 18:48 Advance Directives: Currently, there is no health care proxy. ead Assessment: 15:48 General: from notes from [facility]: "for detailed history see psa notes. pt ead threaten to kill certain staff members \\T\\ [facility] by shooting them with a gun, he called [facility] \\T\\ [place] with these intentions. pt was brought to ED by [employer] for [facility]. Pt just discharged from [facility] on 10/02/2016. He is angry because his medications has been changed, he has paranoid delusions, with periods of anger.". 16:00 General: This nurse spoke with Narda at [facility] regarding pt's medications. She ead states pt received aspirin 81 mg at 0940 this morning. He received meclizine 25 mg at 1341. and MS Contin at 1349. Will document these last doses in pt's medication hx.. 16:28 General: Appears in no apparent distress, Behavior is restless. Neurological: Level of ead Consciousness is awake, alert, Oriented to person, place, time. Respiratory: Airway is patent Respiratory effort is even, unlabored. Derm: Skin is pink, warm & dry. 17:30 Adult Sepsis Screening: The patient does not have new or worsening altered mentation. ead Patient's respiratory rate is less than 22. Systolic blood pressure is greater than 100. Patient has a qSOFA score of 0- Negative Sepsis Screen. General: Appears in no apparent distress, comfortable, Behavior is cooperative. Respiratory: Airway is patent Respiratory effort is even, unlabored. Derm: Skin is pink, warm & dry. 18:29 General: [facility] by [facility] Jo with [facility]. ead 18:30 General: Appears in no apparent distress, comfortable, Behavior is cooperative. ead Neurological: Level of Consciousness is awake, alert, obeys commands, Oriented to person, place, time. Respiratory: Airway is patent Respiratory effort is even, unlabored. Derm: Skin is pink, warm & dry. 19:23 General: Appears in no apparent distress, Behavior is cooperative, restless. General: slm pt in and out of room frequently security observing . Respiratory: Airway is patent Respiratory effort is even, unlabored. 20:38 General: Appears in no apparent distress, comfortable, Behavior is appropriate for age, slm cooperative. Respiratory: Airway is patent Respiratory effort is even, unlabored. Derm: Skin is pink, warm & dry. Mental Health Eval: 16:22 Mental health consult is initiated at 04:22. Status: Vet. [facility] Behavioral rb Health: The patient is not an established patient of [facility] Behavioral Health. Referral Information: Evaluation referral is generated by Sudhakar Ledezma. The patient was referred for evaluation because [employer] received a phone call from the [facility] stating they were receiving phone calls from Pt expressing +HI and that he had possession of a shot gun. Pt admitted he only has a Shanell gun. [facility] denies calling [facility] then states, "I said I was going hunting". Pt stated "Gave me a shot of Risperdal and I'm allergic to it". "Gave it to me for 3 days", then said he got it for 8 days. Pt believes it was intentional. Pt reported +HI towards the [facility]hakar Dhaliwal staff. "I need to get to the [place], [facility] ". . Subjective: The patients chief complaint is Wants his medications stabilized. Increased bizarre behavior, paranoid, poor impulse control, manic, agitated, increased anxiety, thoughts of grandeur. . Patient's mood is anxious, elevated, irritable, Hallucinations are denied. Pt presents as agitated, anxious, and restless. Pt's speech is hyperverbal and rapid. At times he appears nonsensical and disorganized. Mental Health history: anxiety, depression, paranoia, psychosis, sleep disturbance, suicide Mental Health Admissions: Pt has a long hx of admissions. Last admission was \\ [facility] for 1 week, D/C on 09/01/16. Current Outpatient Mental Health Services: Psychiatrist / Agency: Dr. Menezes or Dr. Arboleda \\T\\ [facility].. Current living environment is The patient currently lives alone. Patient presents to Emergency Department with the following symptoms within the past 2 weeks: agitation, anxiety, delusions of grandeur, depressed mood, euphoria, Homicidal ideation toward their ,. paranoia, poor impulse control, psychosis, sleep disturbance - insomnia. Substance abuse: Pt denies. Mental status exam: Patients appearance is unkempt, Patient's behavior is agitated, bizarre, Speech is normal. Affect is blunted Mood is anxious. irritable. Hallucinations are denied. Appetite is normal. Memory is fair. Energy level is impulsive Content of thought is obsessive. about [facility] the [facility]. Thought process is tangential. Cognitive level is oriented to person, place, time and situation Patient's insight is poor. Judgement is poor. Rapport with interviewer is good. Suicidal Ideation is not present. Homicidal ideation is denied. Disposition: Medically cleared for disposition by Krystle Nevarez MD. 18:28 Disposition: Psychiatric Consult is performed by phone with Dr Leighann Uriarte. [facility] rb Admission Criteria: The patient displays homicidal ideation. The patient displays symptoms of severe psychiatric disorder resulting in disordered behavior and significant interference with his / her ability to maintain self care. Delusions. The patient displays memory impairment of such severity as to endanger the welfare of self or others. The patient requires continuous observation and/or control to protect self, others or property. The patient requires administration and monitoring of psychoactive medications by skilled medical providers due to the side effects of the psychoactive medications or significant dosage adjustments. Legal Status: Patient's legal status will be [facility] Services admission: . [place] Safe [place]: [place] Safe Act is applicable to this patient. The patient poses a risk to self or other and the Nursing Chrome Tanner has been notified. He/She will enter the patient's data. DSM-V Differential Diagnosis: Schizoaffective Disorder (F25.0). Insurance Pre-Certification: Attempted to Contact Norberto Bryan \\T\\ [facility]. Norberto will not be in his office 10/05-, call Daniela Hernandez \\\\ ext#[phone].. Narrative: Per Kalpana; Khurram Nurse \\T\\ [facility], They do have beds available but would not review chart until Wednesday. Pt admitted to [facility] and awaiting for bed \\T\\ [place]. Vital Signs: 15:41 BP 145 / 87; Pulse 102; Resp 16; Temp 95.5(T); Pulse Ox 97% on R/A; ead 20:39 BP 140 / 91; Pulse 101; Resp 18; Temp 96.4; Pulse Ox 96% on R/A; [facility] Vitals: 15:08 Log In Time N/A - ambulance arrival. ead ED Course: 15:11 Dainela Fair, RICHARD is Primary Nurse. sew 15:11 Patient visited by Alexus Thornton. sew 15:11 Primary Nurse role handed off by Daniela Fair RN jc4 15:11 Patient moved to [facility] sew 15:14 Krystle Nevarez MD is Attending Physician. ml 15:14 Patient visited by Krystle Nevarez MD. ml 15:21 Triage Initiated ead 15:41 Patient visited by Flavio Franco Security Aide. pjf 15:41 Pt greeted and oriented to ED. Patient advised of names of staff involved in care, pjf location of call nava, wait times and NPO status. Accompanied by ems, Patient has correct armband on for positive identification. Placed in psych safe attire. Bed in low position. Call light in reach. Side rails up X 1. Security observing. Property removed, secured in belongings bag- Placed in locker #4. Door closed. Noise minimized. Visitors limited. Report received from rn -ross. triage level #2, ams, cooperative \\T\\ this time. The patient / caregiver is instructed regarding the plan of care and ED course. Psych Safety Check: Location: Psych Room. 16:01 Patient visited by Flavio Franco Security Aide. pjf 16:20 Patient visited by Flavio Franco Security Aide. pjf 16:22 [facility] Payment Agreement was scanned into [employer] and attached to record. [id number] 16:51 Patient visited by Chava Copeland. rn1 17:00 Patient visited by Chava Copeland. rn1 17:27 Patient visited by Flavio Franco Security Aide. pjf 17:35 Patient visited by Flavio Franco Security Aide. pjf 17:58 Patient visited by Flavio Franco Security Aide. pjf 18:14 Patient visited by Flavio Franco Security Aide. pjf 18:29 Patient visited by Flavio Franco Security Aide. pjf 18:46 Patient visited by Flavio Franco Security Aide. pjf 18:48 No IV's were initiated during this patient's visit. No procedures done that require ead assistance. 18:56 [facility] Legal paperwork was scanned into [employer] and attached to record. ml4 19:07 Patient visited by Flavio Franco Security Aide. pjf 19:19 Patient visited by Flavio Franco Security Aide. pjf 19:23 Radha Moran LPN is Primary Nurse. slm 19:24 Patient visited by Radha Moran LPN. slm 19:29 Leighann Uriarte is Hospitalizing Provider. ml 19:37 Patient visited by Ede Pate. mas 19:47 Patient visited by Ede Pate. mas 20:02 Patient visited by Ede Pate. mas 20:15 Patient visited by Ede Pate. mas 20:30 Patient visited by Ede Pate. mas 20:39 Patient visited by Radha Moran LPN. slm 20:43 Patient visited by Radha Moran LPN. [facility] 10/04 20:22 T-Sheet-- Draft Copy was scanned into [employer] and attached to record. klr Administered Medications: 10/03 16:03 Not Given (given prior to arrival to [facility]): morphine Extended Release Tablet 15 mg PO ead once 16:03 Not Given (given prior to arrival to [facility]): Aspirin Chewable Tablet 81 mg PO once ead Attachments: 18:56 E Legal paperwork ml4 Point of Care Testing: Blood Glucose: 10/03 15:40 Blood Glucose: 119 mg/dL; ead Ranges: Order Results: Lab Order: Fingerstick Blood Sugar; SPEC'M 10/03/16 15:37 Test: BEDSIDE GLUCOSE; Value: 119; Range: 80-115; Abnormal: Above high normal; Units: MG/DL; Status: F Outcome: 19:29 Decision to Hospitalize by Provider. ml 20:39 Discharge Assessment: Patient awake, alert and oriented x 3. No cognitive and/or slm functional deficits noted. Patient verbalized understanding of disposition instructions. patient administered narcotics - no. The following High Risk Discharge criteria are identified: None. Admitted to Psych accompanied by tech, via wheelchair, with chart. Condition: good. No special radiology studies were completed. 20:45 Patient left the ED. [facility] Signatures: Krystle Nevarez MD MD ml Christie Gutierrez, PSA PSA Flavio Collins, Security Aide Jie Kumar, PSA PSA ml4 Daniela Fair RN RN 4 Ede Pate Sarah sew McIntyre, Stephanie, LPN LPN Corry Pickard,RICHARD RN Chava Tsang rn1 CelenaCinthia, Reg Reg ks16 Dora Lara Corrections: (The following items were deleted from the chart) 15:47 15:15 Suicide/Homicide risk assessment- The patient admits to and/or has been reported ead to be having suicidal ideations. ead 15:52 15:47 Home Meds: amitriptyline 75 mg Oral tab nightly; ead ead 15:52 15:47 Home Meds: MS Contin 15 mg Oral TbER 1 tab every 12 hours; ead ead 15:52 15:47 Home Meds: promethazine 25 mg Oral tab 1 tab once daily as needed; ead ead 16:02 15:47 Home Meds: meclizine 25 mg Oral chew 1 tab 3 times per day; ead ead 16:02 15:47 Home Meds: aspirin 81 mg Oral tab once daily; ead ead 16:02 15:51 Home Meds: MS Contin 15 mg Oral TbER 1 tab every 12 hours (Last Dose: 10/03/2016 ead 01:19); ead 17:56 16:22 Subjective: The patients chief complaint is Wants his medications stabilized. rb Increased bizarre behavior, paranoid, poor impulse control, manic, agitated, increased anxiety, thoughts of grandeur. . Patient's mood is anxious, elevated, irritable, Hallucinations are denied. rb 18:29 15:47 Home Meds: simethicone 80 mg Oral tab every 6 hours as needed; ead ead 18:29 15:47 Home Meds: Fish Oil 1,000 mg Oral cap daily; ead ead Chart Complete MTDD
[2016-10-05 22:09] LABS: AMPHETAMINES LEVEL URINE NEGATIVE (NEGATIVE); BENZODIAZEPINES URINE NEGATIVE (NEGATIVE); COCAINE METABOLITE URINE NEGATIVE (NEGATIVE); CONTROL LINE INT CTR LINE PRESENT; METHADONE URINE NEGATIVE (NEGATIVE); OPIATES URINE POSITIVE (NEGATIVE); TRICYCLIC ANTIDEPRESS URINE POSITIVE (NEGATIVE)
[2016-10-06] MEDS: clonazePAM 0.5 MG TAB PO SCH ×2 (00:35→21:47)
[2016-10-06] MEDS: MORPHINE 15 MG SA TAB PO SCH ×3 (00:36→21:48)
[2016-10-06] MEDS: OMEPRAZOLE 20 MG CAP PO SCH ×2 (00:36→21:47)
[2016-10-06] MEDS: POLYVINYL ALCOHOL OPHTH SOLN 15 ML(LIQUITEARS) OU PRN ×3 (01:23→16:00)
[2016-10-06] MEDS: FIORICET TAB PO PRN (01:24)
[2016-10-06] MEDS: chlorproMAZINE 25 MG TAB (Q0161) PO PRN ×4 (02:31→21:48)
[2016-10-06] MEDS: MAALOX 30 ML SUSP *UDC PO PRN (03:53)
[2016-10-06] MEDS: SIMETHICONE 80 MG CHEW TAB PO PRN ×2 (06:27→08:49)
[2016-10-06 07:07] VITALS: BP 140/93
[2016-10-06] MEDS: FEXOFENADINE 60 MG TAB PO SCH (08:40)
[2016-10-06] MEDS: OMEGA-3 1050MG CAPSULE PO SCH (08:41)
[2016-10-06] MEDS: NICOTINE 21MG/24HR 1 EA TRANSDERMAL TD SCH (08:42)
[2016-10-06] MEDS: DIVALPROEX 500 MG TAB PO SCH ×2 (08:43→21:47)
[2016-10-06] MEDS: ASPIRIN 81 MG ENTERIC TAB PO SCH (08:44)
[2016-10-06] MEDS: QUEtiapine FUMARATE 50 MG TAB PO SCH ×2 (08:44→16:00)
[2016-10-06] MEDS: POTASSIUM CHLORIDE 10 MEQ SR TABLET PO SCH (08:44)
[2016-10-06] MEDS: BISACODYL 10 MG SUPP PR SCH (08:44)
[2016-10-06] MEDS: VITAMIN D 1,000 INTERNATIONAL UNITS TABLET PO SCH (08:44)
[2016-10-06] MEDS ORDERED: FIORICET TAB PO PRN (13:45)
--- NOTE | 2016-10-06 20:27 | IPN ---
DATE: 10/06/2016 SUBJECTIVE: "You don't know what you are doing, I need to go to the [facility]." OBJECTIVE: The patient continues to display hypomanic behavior and needs redirection. His speech continued to be pressured. He has refused to take Seroquel and Depakote and insistent to take amitriptyline and Prozac "I need these medications." Patient is not accepting my opinion and the fact that antidepressants at this point are contraindicated and need to be held for a period of time until these manic episodes subsides. During the interview, patient continues telling me "what do I need to do ?" asking insistently to call his doctor at the [facility] and to transfer him as soon as possible. MENTAL STATUS EXAMINATION: The patient is dressed in [facility], has fair eye contact. Speech is pressured. Mood is elated. Affect is congruent with mood. There is no evidence of hallucinations or delusions except some grandiosity. Patient is denying suicidal or homicidal ideation. Insight and judgment is poor. ASSESSMENT: 1. Schizoaffective disorder. 2. Posttraumatic stress disorder (PTSD). 3. Hypomanic behavior. PLAN: 1. Continue holding antidepressant medicatio; amitriptyline and Prozac. 2. Seroquel 200 mg by mouth at bedtime. 3. Depakote 500 mg by mouth twice a day. 4. Seroquel 50 mg by mouth twice a day. 5. Clonazepam 0.5 mg by mouth at bedtime. 6. Thorazine 50 mg by mouth every four hours as needed for agitation. 7. I discuss the case with Dr. Arellano at the [facility] and they will accept him in the morning.
[2016-10-06] MEDS: QUEtiapine FUMARATE 200 MG TAB PO SCH (21:47)
[2016-10-06] MEDS: ACETAMINOPHEN TAB 650MG DOSE (2X325MG) PO PRN (21:49)
[2016-10-07] MEDS: chlorproMAZINE 25 MG TAB (Q0161) PO PRN ×2 (03:13→10:14)
[2016-10-07 06:39] VITALS: BP 130/77
[2016-10-07] MEDS: BISACODYL 10 MG SUPP PR SCH (09:00)
[2016-10-07] MEDS ORDERED: DEPA1TAB3 PO (10:05)
[2016-10-07] MEDS ORDERED: SERO50TA PO (10:08)
[2016-10-07] MEDS ORDERED: SERO200T PO (10:08)
[2016-10-07] MEDS: DIVALPROEX 500 MG TAB PO SCH (10:14)
[2016-10-07] MEDS: ASPIRIN 81 MG ENTERIC TAB PO SCH (10:14)
[2016-10-07] MEDS: VITAMIN D 1,000 INTERNATIONAL UNITS TABLET PO SCH (10:14)
[2016-10-07] MEDS: QUEtiapine FUMARATE 50 MG TAB PO SCH (10:14)
[2016-10-07] MEDS: POTASSIUM CHLORIDE 10 MEQ SR TABLET PO SCH (10:14)
[2016-10-07] MEDS: FEXOFENADINE 60 MG TAB PO SCH (10:16)
[2016-10-07] MEDS: OMEGA-3 1050MG CAPSULE PO SCH (10:16)
[2016-10-07] MEDS: MORPHINE 15 MG SA TAB PO SCH (10:17)
[2016-10-07] MEDS: NICOTINE 21MG/24HR 1 EA TRANSDERMAL TD SCH (10:18)
[2016-10-07] MEDS ORDERED: FIORICET PO (10:35)
[2016-10-07] MEDS ORDERED: LORazepam 1 MG TAB PO STA (11:00)
--- NOTE | 2016-10-07 14:47 | EDDOCDS ---
Physician Documentation [facility] Name: Corby Pendleton Age: 61 yrs Sex: Male : 1955 Arrival Date: 10/03/2016 Time: 15:[address] MD: Disposition: 10/03/16 19:29 Hospitalization ordered by Leighann Uriarte for Inpatient Admission. Preliminary diagnosis is Homicidal and suicidal ideations. - Bed requested for Admit. - Status is Inpatient Admission. slm - Condition is Stable. - Problem is new. - Symptoms are unchanged. Historical: - Allergies: ARIPIPRAZOLE; BuSpar; Cefuroxime; Effexor; Compazine; Erythromycin; Haldol; Imitrex; MAGNESIUM SULFATE; MODAFINIL; Neurontin; Pamelor; Prazosin; Risperdal; SUMATRIPTAN; Tramadol HCl; Trazodone; - Home Meds: 1. Enulose 10 gram/15 mL oral soln 3 times per day 2. methocarbamol 750 mg Oral tab twice a day 3. omeprazole 20 mg Oral cpDR 2 caps nightly 4. Polly 180 mg Oral tab 1 tab once daily 5. Vitamin D Oral 2000 units daily 6. bisacodyl 10 mg Rectal Suppository Oral tab once daily 7. K-Dur 20 mEq Oral TbTQ 1 tab once daily 8. Prozac 20 mg Oral cap 1 cap once daily 9. promethazine 25 mg Oral tab 1 tab once daily as needed (Last dose: 10/03/2016 00:35) 10. amitriptyline 75 mg Oral tab nightly (Last dose: 10/03/2016 01:19) 11. meclizine 25 mg Oral chew 1 tab 3 times per day (Last dose: 10/03/2016 13:41) 12. aspirin 81 mg Oral tab once daily (Last dose: 10/03/2016 09:40) 13. MS Contin 15 mg Oral TbER 1 tab every 12 hours (Last dose: 10/03/2016 13:49) 14. simethicone 80 mg Oral tab 0.5 tab every 6 hours as needed 15. Fish Oil 1,000 mg Oral cap 2 caps daily 16. clonazepam 0.5 mg Oral tab at bedtime 17. Artificial Tears 1.4% Opht four times a day as needed - PMHx: Anxiety; back pain; COPD; Depression; GERD; Migraines; psych hx; - PSHx: spleen; bladder; - Social history: Smoking status: Patient uses tobacco products, current every day smoker. Patient/guardian denies using alcohol, street drugs, No barriers to communication noted, The patient speaks fluent Norwegian, Speaks appropriately for age. - Family history: Not pertinent. - : The pt / caregiver states he / she is not on anticoagulants. Home medication list is obtained from medical history from iván. - Exposure Risk Screening:: None identified. Vital Signs: 10/03 15:41 BP 145 / 87; Pulse 102; Resp 16; Temp 95.5(T); Pulse Ox 97% on R/A; ead 20:39 BP 140 / 91; Pulse 101; Resp 18; Temp 96.4; Pulse Ox 96% on R/A; slm MDM: 15:29 morphine Extended Release Tablet 15 mg PO once ordered. ml 15:29 Aspirin Chewable Tablet 81 mg PO once ordered. ml 15:57 Financial registration complete. [id number] 16:22 [facility] Payment Agreement was scanned into [employer] and attached to record. ks16 16:55 Fingerstick Blood Sugar Reviewed. ml 17:56 REGULAR DIET PLASTIC KANG+DIET ordered. EDMS 18:53 Admit to [facility]: ordered. EDMS 18:56 E Legal paperwork was scanned into [employer] and attached to record. ml4 10/04 20:22 T-Sheet-- Draft Copy was scanned into [employer] and attached to record. klr Point of Care Testing: Blood Glucose: 10/03 15:40 Blood Glucose: 119 mg/dL; ead Ranges: Administered Medications: 16:03 Not Given (given prior to arrival to [facility]): morphine Extended Release Tablet 15 mg PO ead once 16:03 Not Given (given prior to arrival to [facility]): Aspirin Chewable Tablet 81 mg PO once ead Signatures: Dispatcher [employer] EDMS Krystle Nevarez MD MD ml Treadwell, Michelle, PSA PSA ml4 Radha Moran LPN FOOT PRESS OPERATOR Corry Munoz,RICHARD RN ead Cinthia Dallas, Reg Reg ks16 Dora Lara radha The chart was reviewed and I authenticate all verbal orders and agree with the evaluation and treatment provided.Corrections: (The following items were deleted from the chart) 15:52 15:47 Home Meds: amitriptyline 75 mg Oral tab nightly; ead ead 15:52 15:47 Home Meds: MS Contin 15 mg Oral TbER 1 tab every 12 hours; ead ead 15:52 15:47 Home Meds: promethazine 25 mg Oral tab 1 tab once daily as needed; ead ead 16:02 15:47 Home Meds: meclizine 25 mg Oral chew 1 tab 3 times per day; ead ead 16:02 15:47 Home Meds: aspirin 81 mg Oral tab once daily; ead ead 16:02 15:51 Home Meds: MS Contin 15 mg Oral TbER 1 tab every 12 hours (Last Dose: 10/03/2016 ead 01:19); ead 17:55 17:14 REGULAR DIET ROOM SERVICE ED+DIET ordered. EDMS EDMS 18:29 15:47 Home Meds: simethicone 80 mg Oral tab every 6 hours as needed; ead ead 18:29 15:47 Home Meds: Fish Oil 1,000 mg Oral cap daily; ead ead Attachments: 16:22 [facility] Payment Agreement [email or web address] Chart Complete MTDD
--- NOTE | 2016-10-07 14:48 | EDDOCDS ---
Physician Documentation [facility] Name: Corby Pendleton Age: 61 yrs Sex: Male : 1955 Arrival Date: 10/03/2016 Time: 15:[address] MD: Disposition: 10/03/16 19:29 Hospitalization ordered by Leighann Uriarte for Inpatient Admission. Preliminary diagnosis is Homicidal and suicidal ideations. - Bed requested for Admit. - Status is Inpatient Admission. slm - Condition is Stable. - Problem is new. - Symptoms are unchanged. Historical: - Allergies: ARIPIPRAZOLE; BuSpar; Cefuroxime; Effexor; Compazine; Erythromycin; Haldol; Imitrex; MAGNESIUM SULFATE; MODAFINIL; Neurontin; Pamelor; Prazosin; Risperdal; SUMATRIPTAN; Tramadol HCl; Trazodone; - Home Meds: 1. Enulose 10 gram/15 mL oral soln 3 times per day 2. methocarbamol 750 mg Oral tab twice a day 3. omeprazole 20 mg Oral cpDR 2 caps nightly 4. Polly 180 mg Oral tab 1 tab once daily 5. Vitamin D Oral 2000 units daily 6. bisacodyl 10 mg Rectal Suppository Oral tab once daily 7. K-Dur 20 mEq Oral TbTQ 1 tab once daily 8. Prozac 20 mg Oral cap 1 cap once daily 9. promethazine 25 mg Oral tab 1 tab once daily as needed (Last dose: 10/03/2016 00:35) 10. amitriptyline 75 mg Oral tab nightly (Last dose: 10/03/2016 01:19) 11. meclizine 25 mg Oral chew 1 tab 3 times per day (Last dose: 10/03/2016 13:41) 12. aspirin 81 mg Oral tab once daily (Last dose: 10/03/2016 09:40) 13. MS Contin 15 mg Oral TbER 1 tab every 12 hours (Last dose: 10/03/2016 13:49) 14. simethicone 80 mg Oral tab 0.5 tab every 6 hours as needed 15. Fish Oil 1,000 mg Oral cap 2 caps daily 16. clonazepam 0.5 mg Oral tab at bedtime 17. Artificial Tears 1.4% Opht four times a day as needed - PMHx: Anxiety; back pain; COPD; Depression; GERD; Migraines; psych hx; - PSHx: spleen; bladder; - Social history: Smoking status: Patient uses tobacco products, current every day smoker. Patient/guardian denies using alcohol, street drugs, No barriers to communication noted, The patient speaks fluent Ivorian, Speaks appropriately for age. - Family history: Not pertinent. - : The pt / caregiver states he / she is not on anticoagulants. Home medication list is obtained from medical history from iván. - Exposure Risk Screening:: None identified. Vital Signs: 10/03 15:41 BP 145 / 87; Pulse 102; Resp 16; Temp 95.5(T); Pulse Ox 97% on R/A; ead 20:39 BP 140 / 91; Pulse 101; Resp 18; Temp 96.4; Pulse Ox 96% on R/A; slm MDM: 15:29 morphine Extended Release Tablet 15 mg PO once ordered. ml 15:29 Aspirin Chewable Tablet 81 mg PO once ordered. ml 15:57 Financial registration complete. [id number] 16:22 [facility] Payment Agreement was scanned into Snapdeal and attached to record. ks16 16:55 Fingerstick Blood Sugar Reviewed. ml 17:56 REGULAR DIET PLASTIC KANG+DIET ordered. EDMS 18:53 Admit to [facility]: ordered. EDMS 18:56 E Legal paperwork was scanned into Snapdeal and attached to record. ml4 10/04 20:22 T-Sheet-- Draft Copy was scanned into Snapdeal and attached to record. klr Point of Care Testing: Blood Glucose: 10/03 15:40 Blood Glucose: 119 mg/dL; ead Ranges: Administered Medications: 16:03 Not Given (given prior to arrival to [facility]): morphine Extended Release Tablet 15 mg PO ead once 16:03 Not Given (given prior to arrival to [facility]): Aspirin Chewable Tablet 81 mg PO once ead Signatures: Dispatcher [employer] EDMS Krystle Nevarez MD MD ml Treadwell, Michelle, PSA PSA ml4 Radha Moran LPN COMPLIANCE MGR Corry Munoz,RICHARD RN ead Cinthia Dallas, Reg Reg ks16 Dora Lara radha The chart was reviewed and I authenticate all verbal orders and agree with the evaluation and treatment provided.Corrections: (The following items were deleted from the chart) 15:52 15:47 Home Meds: amitriptyline 75 mg Oral tab nightly; ead ead 15:52 15:47 Home Meds: MS Contin 15 mg Oral TbER 1 tab every 12 hours; ead ead 15:52 15:47 Home Meds: promethazine 25 mg Oral tab 1 tab once daily as needed; ead ead 16:02 15:47 Home Meds: meclizine 25 mg Oral chew 1 tab 3 times per day; ead ead 16:02 15:47 Home Meds: aspirin 81 mg Oral tab once daily; ead ead 16:02 15:51 Home Meds: MS Contin 15 mg Oral TbER 1 tab every 12 hours (Last Dose: 10/03/2016 ead 01:19); ead 17:55 17:14 REGULAR DIET ROOM SERVICE ED+DIET ordered. EDMS EDMS 18:29 15:47 Home Meds: simethicone 80 mg Oral tab every 6 hours as needed; ead ead 18:29 15:47 Home Meds: Fish Oil 1,000 mg Oral cap daily; ead ead Attachments: 16:22 [facility] Payment Agreement [email or web address] Chart Complete MTDD
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
--- NOTE | 2016-10-08 08:49 | DSES ---
DATE OF ADMISSION: 10/03/2016 DATE OF DISCHARGE: 10/07/2016 The following information is according to Dr. Uriarte initial evaluation, his progress note and my own progress note. On 10/03/2016, Dr. Uriarte wrote: He is [id number]. He has a history of schizoaffective. He is a . He also says he has a history of posttraumatic stress disorder (PTSD). He was transferred from [facility] as apparently they had no beds. He had been there recently for a couple of days, admitted 09/30, discharged 10/02 and he was admitted as he was suicidal. Later indicates that he was not. He was not noted to be loud and aggressive and according to their admission summary, he was diagnosed with schizoaffective disorder and then discharged with followup at the [facility] in [place], but I understand he also goes to the [facility] in [place] where he sees Dr. Grant. He says he sees him once a month. It should be noted that the patient is not a reliable historian given his condition. He was discharged on amitriptyline 75 mg daily at bedtime that he takes for pain and sleep, aspirin 81 mg, vitamin D 2000 units daily, Prozac 20 mg daily, Klonopin 0.5 mg at bedtime. He was taken back to [facility] as [facility] indicating that he wanted to kill people at [facility]. He felt they did not give him the right medication. He at one point also said that he wanted to kill one of the doctors there, then he wanted to kill one of the doctors in the area. The police were informed by the [facility] and he was picked up and taken to hospital at [place]. They did not admit him since they did not have any beds and was sent to our emergency department. He has wanted to go to the [facility] for admission and understand from the staff in the emergency room, the [facility] at [place] was contacted and they had no beds, therefore , was admitted to our psychiatric inpatient unit. Labs at admission were not drawn since patient was just recently discharged from [facility] and he was medically worked up then. On 10/05, his CBC showed red blood cells of 3.93, hemoglobin of 11.3, hematocrit of 35.3. His CMP was unremarkable. Thyroid function test was within normal limits. His urine drug screen (UDS) was positive for opiates, barbiturates and tricyclics that he has been treated with. Again, his labs were done on 10/05. HOSPITAL COURSE: After the first evaluation, patient was only focused on being transferred at the [facility]. He was making statements that we are not competent to do the job and that he needs to go there. He insisted in us contacting his outpatient psychiatrist and to call the inpatient unit for bed availability. His medications at admission included two antidepressants, Elavil and Prozac and his symptoms at that point were compatible with a manic episode with pressured speech and some grandiosity. I tried to explain to the patient that at this point, antidepressants are contraindicated and that he needed to take mood stabilizers, but he refused all the medications and continued to state that only people that will be able to help him would be the doctors at the [facility]. We were actively trying to find a bed available at the [facility] at [facility] and [place] and finally, a bed became available at [facility]. I discussed the case with Dr. Arellano and the fact that he was refusing to take all medications and treatment and he was only focused on being transferred to the [facility]. On 10/07/2016, patient is discharged to be transferred to the [facility] since a bed has become available at [place]. He has refused to take our medications including the mood stabilizer, this fact has contributed to his increased irritability, impulsivity and manic behavior. At the moment of discharge, patient is in stable condition from the medical point of view, but needs stabilization from the psychiatric point of view. MENTAL STATUS EXAMINATION AT DISCHARGE: Patient is dressed in [facility], patient is uncooperative. He is only telling me what I have to do and is not agreeable to my treatment. Speech is pressured, has poor eye contact. Mood is elated, manic like. Affect is congruent with mood. Patient is oriented to time , place, person and situation. Attention and concentration is poor. Memory could not be tested. Patient is denying auditory or visual hallucination. Patient has grandiose delusions and is somewhat paranoid. Patient is denying suicidal or homicidal ideation. Judgment and insight are very poor. DISCHARGE DIAGNOSES: Schizoaffective disorder. Posttraumatic stress disorder by history. [place] II: Deferred. [place] III: Chronic obstructive pulmonary disease (COPD), gastroesophageal reflux disease (GERD), migraine and back pain. INSTRUCTIONS TO THE PATIENT: Patient is going to be transferred to [facility] since a bed has become available. [facility]
== END 2016-10-07 12:05 | DRG 885 ==
LOC: M ED 15:08 → M PSY 19:50 → M ED INP 10-04 17:03 → M PSY 10-04 17:06
PROVIDERS: ADMIT Psychiatry & Neurology Psychiatry; ATTEND Psychiatry & Neurology Psychiatry
DX: F25.9 Schizoaffective disorder, unspecified (principal); J44.9 Chronic obstructive pulmonary disease, unspecified; K21.9 Gastro-esophageal reflux disease without esophagitis; F43.10 Post-traumatic stress disorder, unspecified; G43.909 Migraine, unspecified, not intractable, without status migrainosus; M54.5 Low back pain; F17.210 Nicotine dependence, cigarettes, uncomplicated; Z79.899 Other long term (current) drug therapy; Z79.82 Long term (current) use of aspirin